=== PATIENT | female | born 1945 | race Caucasian/White ===

== ENCOUNTER 2022-02-20 14:52 | Outpatient (CLI) | payer MEDICARE | END 2022-02-20 14:53 | disposition home or self-care (01) | LOC: CSHMAMMO 14:52 | PROVIDERS: ATTEND Internal Medicine | DX: Z12.31 Encounter for screening mammogram for malignant neoplasm of breast (principal) | CPT/HCPCS: 77063; 77067 ==

== ENCOUNTER 2023-12-26 14:09 | Outpatient (CLI) | payer MEDICARE | END 2023-12-26 14:10 | disposition home or self-care (01) | LOC: CSHMAMMO 14:09 | PROVIDERS: ATTEND Internal Medicine | DX: Z12.31 Encounter for screening mammogram for malignant neoplasm of breast (principal) | CPT/HCPCS: 77063; 77067 ==